=== PATIENT | male | born 2005 | race Hispanic/Latino ===

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

== ENCOUNTER 2024-11-04 14:39 | Emergency (ER) | payer SELFPAY ==
[~2024-11-04] VITALS: Ht 175.3 cm; Wt 104.3 kg
[~2024-11-04 14:39] MED LIST: DIPH1TAB PO; OMEP40CA21 PO; ONDA-104 PO
[2024-11-04 14:45] VITALS: BP 145/85; PULSE 95; RESP 20; TEMP 100.9; O2SAT 98
--- NOTE | 2024-11-04 14:49 | ERN ---
ED Note History of Present Illness Stated Complaint: SORE THROAT, COUGH Chief Complaint: Sore Throat Time Seen by MD: 14:41 Dictation: PATIENT IS A 19-YEAR-OLD MALE HERE WITH COMPLAINTS OF A SORE THROAT WITH PAINFUL SWALLOWING LOW-GRADE FEVER FOR TWO DAYS. HE STATES HE HAS ALSO HAD A COUGH THAT HAS BEEN DRY. VOICE IS CLEAR, TAKEN TYLENOL [id number] FOR PAIN. NO PRIMARY CARE DOCTOR Allergies: Coded Allergies: No Known Allergies (Unverified Allergy, Unknown, 11/04/24) Home Meds Active Scripts Diphenoxylate HCl/Atropine (Lomotil Tablet) 1 Each Tablet, 2 TAB PO Q6HPRN PRN for DIARRHEA for 5 Days, #10 TAB 0 Refills Prov:MALINDA REY MD 10/28/22 Omeprazole (Omeprazole) 40 Mg Capsule.dr, 40 MG PO DAILY, #30 CAP Prov:MALINDA REY MD 10/28/22 Ondansetron HCl (Ondansetron HCl) 4 Mg Tablet, 4 MG PO TIDP PRN for VOMITING, #20 TAB Prov:MALINDA REY MD 10/28/22 Past Medical History Past Medical History: No Pertinent History Surgical History: None Family History: Negative Social History: Negative, Lives with family RN Note Reviewed/Agreed w/PFSH: Yes Review of System Dictation CONSTITUTIONAL: NEGATIVE EXCEPT FOR HPI FEVER HEAD/FACE: NEGATIVE EXCEPT FOR HPI EENT: NEGATIVE EXCEPT FOR HPI SORE THROAT WITH PAINFUL SWALLOWING RESPIRATORY: NEGATIVE EXCEPT FOR HPI DRY COUGH GASTROINTESTINAL/ABDOMINAL: NEGATIVE EXCEPT FOR HPI GENITOURINARY: NEGATIVE EXCEPT FOR HPI MUSCULOSKELETAL: NEGATIVE EXCEPT FOR HPI INTEGUMENTARY: NEGATIVE EXCEPT FOR HPI NEUROLOGICAL/PSYCH: NEGATIVE EXCEPT FOR HPI HEMATOLOGIC/LYMPHATIC: NEGATIVE EXCEPT FOR HPI ALL SYSTEMS NEGATIVE, EXCEPT NOTED ABOVE. 13 POINT REVIEW OF SYSTEMS ASSESSED AND ALL NEGATIVE EXCEPT FOR ABOVE. Initial Vital Sign VS Vital Signs Date Time Temp Pulse Resp B/P (MAP) Pulse Ox O2 Delivery O2 Flow Rate FiO2 11/04/24 14:40 100.9 100 20 148/91 97 Room Air 0 11/04/24 14:45 21 Physical Exam Dictation VITAL SIGNS REVIEWED GENERAL APPEARANCE: ALERT, ORIENTED X 3, MILD ACUTE DISTRESS, WELL DEVELOPED, NOURISHED. HEAD AND FACE: NON-TRAUMATIC. EYES: PERRL, PINK CONJUNCTIVAS, EYELID NO TRAUMA, ANTERIOR CHAMBER WITH ARCUS SENILIS. EARS: PINNAS INTACT AND NO SIGNS OF TRAUMA OR ERYTHEMA EAR CANALS CLEAR AND NO DISCHARGE TM NO ERYTHEMA NOSE: NO DISCHARGE, NO BLEEDING. OROPHARYNX: MOUTH NORMAL, TONGUE PINK, PHARYNX CLEAR,NO ERYTHEMA, TONSILS 2/4 BILATERALLY WITH EXUDATE TO THE RIGHT, NO ABSCESSES NOTED, MUCOUS MEMBRANE MOIST TONSILLAR PILLAR. UVULA MIDLINE, VOICE IS CLEAR NECK: SUPPLE, NON-TENDER, NO THYROMEGALY, NO MASSES, NO JVD, NO BRUITS BREAST:DEFERRED CHEST:NO TENDERNESS, NO CREPITUS, NO PARADOXICAL MOVEMENT, NO RETRACTIONS LUNGS:CLEAR, WELL-VENTILATED, SYMMETRIC, NO RALES, NO WHEEZING, NO RHONCHI, NO STRIDOR, GOOD BREATH SOUNDS BILATERALLY HEART: REGULAR RATE, REGULAR RHYTHM, NO MURMUR, NO GALLOPS VASCULAR: NO PERIPHERAL EDEMA, ABDOMEN: SOFT, POSITIVE BOWEL SOUNDS, NONDISTENDED, NO GUARDING, NONTENDER, NO REBOUND, NO MASSES NO HEPATOMEGALY, NO SPLENOMEGALY, NO CARABALLO'S SIGN, NO HERNIAS. RECTAL: DEFERRED GENITAL: DEFERRED NEUROLOGICAL: NORMAL SPEECH, MOTOR FUNCTION INTACT, SENSORY FUNCTION INTACT MUSCULOSKELETAL: NECK NONTENDER, FULL RANGE OF MOTION, BACK NONTENDER, FULL RANGE OF MOTION, EXTREMITIES: NONTENDER, FULL RANGE OF MOTION SKIN: COLOR PINK, DRY, NO TURGOR, NO RASH, NO LACERATIONS, NO ABRASIONS, NO CONTUSIONS. LYMPHATIC: DEFERRED Results (Laboratory/Radiology) Laboratory/Radiology Laboratory Tests Test 11/04/24 14:43 Influenza Type A Antigen Negative For Type A Influenza Type B Antigen Negative For Type B SARS-CoV-2 Antigen (Rapid) PRESUMPTIVE NEGATIVE Labs Reviewed?: Yes ED Course ED Course Orders Procedure Category Date Status Time Covid19 (Sars Antigen LAB 11/04/24 Complete Rapid) 14:46 Influenza Type A & B, LAB 11/04/24 Complete Rapid 14:46 Dexamethasone 4mg/Ml PHA 11/04/24 Complete 1ml Vial (Dexametha 15:00 Ibuprofen 800 Mg Tab PHA 11/04/24 Complete (Motrin) 15:00 Current Medications Medications (Trade) Dose Ordered Sig/Malika Route PRN Reason Start Time Stop Time Status Last Admin Dose Admin Dexamethasone Sodium Phosphate (dexaMETHasone 4MG/ML 1ML VIAL) 8 mg ONCE ONCE IM 11/04/24 15:00 11/04/24 15:03 DC Ibuprofen (moTRIN) 800 mg ONCE ONCE PO 11/04/24 15:00 11/04/24 15:03 DC Vital Signs Date Time Temp Pulse Resp B/P (MAP) Pulse Ox O2 Delivery O2 Flow Rate FiO2 11/04/24 14:45 100.9 95 20 145/85 98 Room Air* 0 21 11/04/24 14:40 100.9 100 20 148/91 97 Room Air 0 1515/SWABS FOR INFLUENZA AND FLU NEGATIVE PATIENT WILL BE TREATED EMPIRICALLY FOR ACUTE EXUDATIVE TONSILLITIS SENT HOME WITH AUGMENTIN, TESSALON PERLES/IBUPROFEN TOLD SEE HIS PRIMARY CARE DOCTOR IN 1-2 DAYS AND INCREASE FLUIDS Medical Decision Making MDM DISCHARGE INSTRUCTIONS BASED ON EMPIRIC TREATMENT FOR ACUTE EXUDATIVE TONSILLITIS SWABS NEGATIVE FOR INFLUENZA AND COVID DISCHARGED HOME WITH AUGMENTIN 875/TESSALON PERLES/IBUPROFEN TOLD SEE HIS PRIMARY CARE DOCTOR NEEDED DX & DISP Disposition: Discharge Departure Impression: Primary Impression: Exudative tonsillitis Additional Impressions: Viral URI with cough, Fever Condition: Stable Scripts Benzonatate (Tessalon Perles) 100 Mg Cap 200 MG PO TID for cough, #60 CAP 0 Refills Prov: RIK COLIN LOADER OPERATOR/GROUND LEADER 11/04/24 Ibuprofen (Ibuprofen 800 mg Tab) 800 Mg Tab 800 MG PO Q8H PRN for fever or pain, #30 TAB 0 Refills Prov: RIK COLIN NP 11/04/24 Amoxicillin/Potassium Clav (Amox Tr-K Clv 875-125 mg Tab) 875 Mg-125 Mg Tablet 1 EACH PO BID for 10 Days, #20 TAB 0 Refills Prov: RIK COLIN NP 11/04/24 Additional Instructions: FOLLOW-UP WITH PRIMARY CARE PROVIDER IN 1 TO 2 DAYS. TAKE MEDICATIONS DIRECTED HERE IN THE EMERGENCY ROOM. OKAY TO CONTINUE HOME MEDICATIONS UNLESS OTHERWISE DISCUSSED DURING YOUR VISIT IN THE EMERGENCY ROOM TODAY. RETURN TO YOUR NEAREST EMERGENCY ROOM IF SYMPTOMS WORSEN OR IF THERE IS NO IMPROVEMENT. CALL 911 IF YOU NEED IMMEDIATE ASSISTANCE. TAKE TYLENOL OR MOTRIN [id number] NEEDED AND IF NO CONTRAINDICATIONS ARE PRESENT. INCREASE ORAL HYDRATION. A WOUND CULTURE OR URINE CULTURE WAS ORDERED HERE IN THE EMERGENCY ROOM DEPARTMENT PLEASE FOLLOW-UP WITH PRIMARY CARE PROVIDER AND ADVISE THEM TO GET REPEAT PORTS FROM OUR FACILITY. IF YOU HAD ANY ALFRED WRAP/SPLINTS THAT WERE APPLIED HERE, PLEASE DO NOT REMOVE THEM UNTIL YOU SEE YOUR PRIMARY CARE OR SPECIALTY. TAKE ANTIBIOTICS DIRECTED UNTIL GONE. TAKE TESSALON PERLES NEEDED FOR CO UGH. INCREASE YOUR WATER INTAKE. SEE YOUR PRIMARY CARE DOCTOR IN 1-2 DAYS Referrals: MYKE LR MD (PCP) Time of Disposition: 15:17 I have reviewed the case, and I agree with, Diagnosis and Plan RIK COLIN NP Nov 04, 2024 14:49
[2024-11-04 15:14] LABS: COVID19 (SARS ANTIGEN RAPID) PRESUMPTIVE NEGATIVE (NEGATIVE); INFLUENZA TYPE A Negative For Type A (NEGATIVE); INFLUENZA TYPE B Negative For Type B (NEGATIVE)
[2024-11-04] MEDS ORDERED: BENZ-39 PO (15:23)
[2024-11-04] MEDS ORDERED: IBUP-2077 PO (15:23)
[2024-11-04] MEDS ORDERED: AMOX1TAB16 PO (15:23)
[2024-11-04] MEDS: ibuPROFEN 800 MG TAB PO ONE (15:34)
[2024-11-04] MEDS: dexaMETHasone SOD PHOSPHATE 4 MG/ML 1ML VIAL IM ONE (15:34)
== END 2024-11-04 15:46 | disposition home or self-care (01) ==
LOC: EDH 14:39
DX: J03.90 Acute tonsillitis, unspecified (principal); R05.9 Cough, unspecified; R50.9 Fever, unspecified; B97.89 Other viral agents as the cause of diseases classified elsewhere; Z79.899 Other long term (current) drug therapy; Z20.822 Contact with and (suspected) exposure to COVID-19
CPT/HCPCS: 99283; 87426; 87804 ×2; 96372; J1100